=== PATIENT | male | born 1965 | race Caucasian/White ===

== ENCOUNTER 2017-01-24 22:46 | Emergency (ER) | payer OTHER ==
[~2017-01-24 22:46] MED LIST: BACTRIM DS 8001 TAB PO; KEFLEX500 MG PO
[2017-01-24 22:51] VITALS: BP 166/90
--- NOTE | 2017-01-24 23:52 | ED EYE COMPLAINT ---
History of Present Illness General Chief Complaint: Eye Problems Stated Complaint: "MY EYES BURN" Source: patient Exam Limitations: no limitations Vital Signs & Intake/Output Vital Signs & Intake/Output Vital Signs Date Time Temp Pulse Resp B/P B/P Pulse O2 O2 Flow FiO2 Mean Ox Delivery Rate 01/24 2251 98.0 61 22 166/90 Allergies Coded Allergies: MDX - Penicillin (PENICILLIN) (RASH 02/26/15) Reconcile Medications Cephalexin (Keflex) 500 MG CAP 1 TAB PO 4 TIMES/DAY INFECTION Cephalexin (Keflex) 500 MG CAP 1 TAB PO 4 TIMES/DAY INFECTION Naphazoline HCl/Pheniramine (Naphcon-A Eye Drops) 0.025 %-0.3 % DROPS 1 GTT OU FOUR TIMES A DAY PRN eye irritation Sulfamethoxazole/Trimethopri (Bactrim Ds 800 MG-160 MG) 1 TAB TAB 1 TAB PO BID ABSCESS Sulfamethoxazole/Trimethopri (Bactrim Ds 800 MG-160 MG) 1 TAB TAB 1 TAB PO BID INFECTION Triage Note: per pt bilat burning to eyes reports ?insecticide in eyes occurred about 1729 and still burning flushed eyes well Triage Nurses Notes Reviewed? yes Onset: Abrupt Duration: hour(s): Timing: single episode today Severity: moderate Modifying Factors: Improves With: other (irrigation). Left Eye Associated Symptoms: burning Right Eye Associated Symptoms: burning HPI: 51-year-old male presents emergency department complaining of burning of both eyes since 5:30 PM today. Patient states that he was spraying bed bug infected mattresses with Cyonara 9.7 Insectoside prior to burning sensation in his eyes. He did not have any spray directly into his eyes however believes it may have been on his hands and he wiped his eyes. He has irrigated his eyes extensively with water which improved his burning sensation. Every time he wets his eyes his symptoms are improved however 10 minutes following this his eyes feel very dried out burning sensation. The patient wears glasses for distance vision. The patient denies visual changes, blurry vision, decreased vision, floaters, any discharge from eyes, tearing. (TRUDY FENG,SAMMIE LEHMAN) Past History Travel History Traveled to [place] past 21 day No Medical History Any Pertinent Medical History? 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 No (SAMMIE YATES PA-C) Review of Systems Review of Systems Constitutional: Reports: no symptoms. Eyes: Reports: see HPI. Ear: Reports: no symptoms. Nose: Reports: no symptoms. Mouth: Reports: no symptoms. Throat: Reports: no symptoms. Respiratory: Reports: no symptoms. Cardiovascular: Reports: no symptoms. GI: Reports: no symptoms. Genitourinary: Reports: no symptoms. Musculoskeletal: Reports: no symptoms. Skin: Reports: no symptoms. Neurological/Psychological: Reports: no symptoms. Hematologic/Endocrine: Reports: no symptoms. Immunologic/Allergic: Reports: no symptoms. All Other Systems: Reviewed and Negative (SAMMIE YATES PA-C) Physical Exam General Appearance: well developed/nourished, no apparent distress, alert, awake General Inspection: normal inspection Eyelid: normal inspection Conjunctiva/Sclera: injected Cornea: normal inspection EOM: intact Pupil: normal accommodation, normal pupil, PERRL General Inspection: normal inspection Eyelid: normal inspection Conjunctiva/Sclera: injected Cornea: normal inspection EOM: intact Pupil: normal accommodation, normal pupil, PERRL Physical Exam Head: atraumatic, normal appearance Nose: normal inspection Mouth/Throat: normal mouth inspection, pharynx normal Neck: normal inspection, supple, full range of motion Neurologic/Psych: awake, alert, oriented x 3, normal mood/affect Skin: intact, normal color, warm/dry (SAMMIE YATES PA-C) Progress Differential Diagnosis: corneal abrasion, corneal foreign body, conjunctivitis, chemical irritation Plan of Care: Visual acuity 20/40 OU, patient does not have his distance glasses with him at this time, he reports no blurry vision. Spoke with Dr. Lynch regarding patient. Will irrigate eyes here in the Emergency department. Tetracaine eyedrops given prior to irrigation. Patient states improvement in burning sensation following irrigation. Patient was given prescription for Naphcon-A to soothe his eye irritation. He is also instructed to picking supervisor over- the-counter artificial tears. The patient will follow-up with his eye doctor tomorrow. He will return with any worsening symptoms or concerns. The patient is in agreement with the plan of care. He is in no acute distress, well- appearing. (TRUDY FENG,SAMMIE LEHMAN) Departure Departure Disposition: HOME OR SELF CARE Condition: Stable Clinical Impression Primary Impression: Chemical exposure of eye Secondary Impressions: Eye irritation Referrals: MARGOT FRAGA,MILIND Pena (PCP/Family) Additional Instructions: As discussed, follow-up with your eye doctor, call to make an appointment for tomorrow. Apply eyedrops as prescribed as needed for burning sensation in your eyes. You may also purchase over the counter artificial tears to lubricate your eyes as needed. Monitor for Signs of visual changes. Return with any worsening symptoms or concerns. Please note that there might be incidental findings in your evaluation that are unrelated to the current emergency department visit. Please notify your primary care doctor about this emergency department visit in order to obtain and review all of the testing performed so that these incidental findings can be monitored as needed. If you had an x-ray performed, please understand that some fractures may not be seen on the initial set of x-rays. If your symptoms persist you might need a repeat set of x-rays to check for such a fracture. If you had a laceration evaluated, please understand that foreign bodies such as glass or wood may not be visible to the naked eye or on plain x-rays. If the wound becomes red, swollen, increasingly more painful or if there is any drainage from the wound, please have it reevaluated by a physician for the possibility of a retained foreign body. If you're unable to follow up as outlined in the discharge instructions please return to the emergency department. Thank you for choosing the [facility] Emergency Department for your care. It was a pleasure to serve you today. Departure Forms: Customer Survey General Discharge Information Prescriptions: Current Visit Scripts Naphazoline HCl/Pheniramine (Naphcon-A Eye Drops) 1 GTT OU FOUR TIMES A DAY PRN eye irritation #1 BOT (TRUDY FENG,SAMMIE LEHMAN) PA/TRAINING AND DEVELOPMENT HEAD Co-Sign Statement Statement: ED Attending supervision documentation- I saw and evaluated the patient. I have also reviewed all the pertinent lab results and diagnostic results. I agree with the findings and the plan of care as documented in the PA's/TRAINING AND DEVELOPMENT HEAD's documentation. x I have reviewed the ED Record and agree with the PA's/TRAINING AND DEVELOPMENT HEAD's documentation. [] Additions or exceptions (if any) to the PAs/TRAINING AND DEVELOPMENT HEAD's note and plan are summarized below: [] (HANK FRAGA,BALBINA)
[2017-01-25] MEDS ORDERED: NAPHCON-A EYE D15 ML OU (00:20)
== END 2017-01-25 00:48 ==
LOC: ERH 22:46
DX: T65.0X1A Toxic effect of cyanides, accidental (unintentional), initial encounter (principal); T26.91XA Corrosion of right eye and adnexa, part unspecified, initial encounter; T26.92XA Corrosion of left eye and adnexa, part unspecified, initial encounter